=== PATIENT | male | born 1995 | race Caucasian/White ===

== ENCOUNTER 2020-05-06 04:45 | Emergency (ER) | payer OTHER ==
[~2020-05-06] VITALS: Ht 190.5 cm; Wt 90.7 kg
[2020-05-06 05:00] VITALS: BP 132/90
--- NOTE | 2020-05-06 05:03 | NUR ---
TO LOBBY A/E BED AMBULATORY
--- NOTE | 2020-05-06 06:05 | NUR ---
SEEN AND EXAMINED BY LINDEN , WITH ORDERS AND CARRIED OUT
--- NOTE | 2020-05-06 06:16 | NUR ---
PT TAKEN TO XRAY
[2020-05-06] MEDS ORDERED: PANTOPRAZOLE 40 MG TABEC PO ONE (06:25)
[2020-05-06] MEDS ORDERED: IBUPROFEN 800 MG TAB PO ONE (06:25)
--- NOTE | 2020-05-06 06:25 | NUR ---
MEDICATED PER [facility] ORDER, TOLERATED WELL
[2020-05-06 08:47] LABS: BASOPHILS % (AUTO) 0.8 % (0.0-2.0); EOSINOPHILS % (AUTO) 1.1 % (0.0-4.0); HEMATOCRIT 48.4 % (36-52); HEMOGLOBIN 16.7 g/dL (12.0-18.0); LYMPHOCYTES # (AUTO) 1.5 K/uL (2.0-11.5); LYMPHOCYTES % (AUTO) 33.5 % (20.5-51.1); MEAN CORPUSCULAR HEMOGLOBIN 33 pg (27-31); MEAN CORPUSCULAR HGB CONC 35 g/dL (33-37); MEAN CORPUSCULAR VOLUME 95.9 fL (80-94); MONOCYTES # (AUTO) 0.4 K/uL (0.8-1.0); MONOCYTES % (AUTO) 9.6 % (1.7-9.3); NEUTROPHILS # (AUTO) 2.4 K/uL (1.8-7.7); PLATELET COUNT (AUTO) 298 K/uL (140-450); RED BLOOD CELL COUNT(AUTO) 5.04 MIL/uL (4.20-6.10); RED CELL DISTRIBUTION WIDTH 12.5 % (11.6-13.7); WHITE BLOOD COUNT (AUTO) 4.3 K/uL (4.8-10.8)
[2020-05-06 08:58] LABS: ALBUMIN 4.9 g/dL (3.4-5.0); ANION GAP 14.5 (8-16); CARBON DIOXIDE 29.6 mmol/L (21-32); CREATININE 0.9 mg/dL (0.6-1.3); POTASSIUM 4.1 mmol/L (3.5-5.1); TOTAL BILIRUBIN 1.5 mg/dL (0.0-1.0)
--- NOTE | 2020-05-06 09:20 | NUR ---
RESULTS BACK AND NOTED BY ERMD AND FOR D/C
--- NOTE | 2020-05-06 09:23 | NUR ---
SWAB DONE AND SENT TO LAB
[2020-05-06 09:25] VITALS: BP 121/78
--- NOTE | 2020-05-06 09:25 | NUR ---
Patient discharged with v/s stable. Written and verbal after care instructions given and explained. Patient alert, oriented and verbalized understanding of instructions. Ambulatory with steady gait. All questions addressed prior to discharge. ID band removed. Patient advised to follow up with PMD. Rx of MYLANTA,OMEPRAZOLE given. Patient educated on indication of medication including possible reaction and side effects. Opportunity to ask questions provided and answered.
--- NOTE | 2020-05-07 17:51 | NUR ---
Covid results received from lab. Results = POSITIVE. Hard copy requested from lab and placed in infection controls mailbox.
== END 2020-05-06 09:25 | disposition home or self-care (01) ==
LOC: MED 04:45
DX: R07.9 Chest pain, unspecified (principal); Z20.828 Contact with and (suspected) exposure to other viral communicable diseases
CPT/HCPCS: 36415; 71045; 80053; 84484; 85025; 99284; U0003

== ENCOUNTER 2021-03-25 15:04 | Emergency (ER) | payer BC, OTHER ==
[~2021-03-25] VITALS: Ht 182.9 cm; Wt 95.3 kg
[2021-03-25 15:17] VITALS: BP 148/78
--- NOTE | 2021-03-25 15:25 | NUR ---
PT AMB TO BED 4.
--- NOTE | 2021-03-25 15:26 | NUR ---
25 Y/O MALE BIB FOR C/O CHEMICAL IN EYE X 1.5 HOURS AGO. WASHED OUT EYES FOR 30 MINS WITH WATER PER POISON CONTROL. EYES APPEAR REDDENED, NO DISCHARGE AND TENDER TO TOUCH. 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 PMHX: DENIES ALLERGIES: DENIES HOME MEDS: DENIES
--- NOTE | 2021-03-25 15:56 | NUR ---
EYE ASSESSMENT DONE.
[2021-03-25] MEDS ORDERED: FLUORESCEIN OPTH STRIP 1 MG OP ONE (16:40)
[2021-03-25] MEDS ORDERED: TETRACAINE HCL/PF 0.5% OPTH 4 ML BTL OP ONE (16:40)
--- NOTE | 2021-03-25 17:00 | NUR ---
EYE DROPS ADMINISTERED BY LINDEN LEGGETT AT BEDSIDE, PT EXAMINED.
[2021-03-25 17:15] VITALS: BP 137/74
--- NOTE | 2021-03-25 17:16 | NUR ---
Patient discharged with v/s stable. Written and verbal after care instructions given and explained. Patient verbalized understanding. Ambulatory with steady gait. All questions addressed prior to discharge. Advised to follow up with PMD.
== END 2021-03-25 17:16 | disposition home or self-care (01) ==
LOC: MED 15:04
DX: Z77.098 Contact with and (suspected) exposure to other hazardous, chiefly nonmedicinal, chemicals (principal)
CPT/HCPCS: 99283